=== PATIENT | female | born 2000 | race Caucasian/White ===

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

== ENCOUNTER 2022-05-21 19:26 | Emergency (ER) | payer BC ==
[~2022-05-21] VITALS: Ht 160 cm; Wt 64.0 kg
[~2022-05-21 19:26] MED LIST changes: +ERYT5OIN51 OP
[2022-05-21 19:48] VITALS: BP 120/75
--- NOTE | 2022-05-21 22:37 | NUR ---
PATIENT LEFT WITHOUT BEING SEEN BY DR. Lazaro. NO FURTHER CARE PROVIDED FOR PATIENT.
== END 2022-05-21 22:37 | disposition left against medical advice (07) ==
LOC: MED 19:26
DX: R22.1 Localized swelling, mass and lump, neck (principal); Z53.21 Procedure and treatment not carried out due to patient leaving prior to being seen by health care provider
CPT/HCPCS: 99281

== ENCOUNTER 2022-11-30 07:27 | Emergency (ER) | payer BC, MEDICAID ==
[~2022-11-30] VITALS: Ht 157.5 cm; Wt 60.8 kg
[2022-11-30 08:31] VITALS: BP 113/56; PULSE 101; RESP 16; TEMP 98.3; O2SAT 99
[2022-11-30 09:07] LABS: APPEARANCE,URINE CLOUDY (CLEAR); BILIRUBIN,URINE NEGATIVE (NEGATIVE); BLOOD, URINE 2+ (NEGATIVE); COLOR,URINE AMBER (YELLOW); LEUKOCYTE ESTERASE ,URINE 1+ (NEGATIVE); NITRITE, URINE POSITIVE (NEGATIVE); PH,URINE 7.5 (5.0-9.0); PROTEIN,URINE 2+ (NEGATIVE); UGLUCOSE NEGATIVE (NEGATIVE); UROBILINOGEN,URINE 0.2 EU/dL (0.2 - 1)
[2022-11-30 09:17] LABS: BACTERIA,URINE 10-30 (MOD) /HPF (None Seen); RBC,URINE 11-20 (MOD) /HPF (0-5); SQUAMOUS EPITHELIAL CELL,UR 0-3 (FEW) /LPF (0-3 (FEW))
[2022-11-30] MEDS ORDERED: KETOROLAC 60 MG/2 ML VIAL IM ONE (09:55)
[2022-11-30] MEDS ORDERED: CIPR500T4 PO ×2 (10:05→10:27)
[2022-11-30] MEDS ORDERED: IBUP-2213 PO ×2 (10:05→10:27)
[2022-11-30] MEDS ORDERED: ONDA8TAB87 PO ×2 (10:05→10:27)
[2022-11-30] MEDS ORDERED: PHEN-1877 PO ×2 (10:05→10:27)
[2022-11-30 10:16] VITALS: BP 113/56; PULSE 101; RESP 16; TEMP 98.3; O2SAT 99
== END 2022-11-30 10:21 | disposition home or self-care (01) ==
LOC: MED 07:27
DX: N39.0 Urinary tract infection, site not specified (principal); M54.50 Low back pain, unspecified; Z79.899 Other long term (current) drug therapy
CPT/HCPCS: 81001; 81025; 87086; 96372; 99283; J1885